=== PATIENT | female | born 1945 | race Caucasian/White ===

== ENCOUNTER → 2018-03-09 | Outpatient (CLI) | payer OTHER ==
[~2018-03-09] MED LIST: ALEVE220 MG PO; DIPHENHIST50 MG PO; HYDROXYZINE HCL25 M2 PO; IBUPROFEN 800800 M1 PO; LISINOPRIL2.5 MG; MECLIZINE HCL25 M1 PO; MILLIPRED DP5 MG PO; MOBIC15 MG PO; NORCO 5-325 TA1 EACH PO; NORVASC5 MG PO; OMEPRAZOLE 20 M20 M1 PO; OXYCODONE HCL 55 MG PO; PREDNISONE 10 M10 MG PO; SIMVASTATIN5 MG; TRAMADOL 50 MG50 MG PO; VALTREX1000 MG PO; ZOFRAN ODT4 MG PO
--- NOTE | 2018-03-11 16:04 | S ---
[address] [address] SURGICAL PATH RPT PROCEDURE Name: SHWETA NUNEZ Room: [facility] Rodriguez#: [id number] Admission: 03/09/18 Date of : 49 Discharge: Report #: [id number] Path Case #: [id number] PATHOLOGY REPORT COLLECTION DATE: 03/09/2018 RECEIVED DATE: 03/09/2018 SUBMITTING PHYS: Dr. Jorge Luis Wallace OTHER PHYS: Dr. Karen Barrow SPECIMEN(S) RECEIVED: A.Right breast stereotactic biopsy for calcification B.Right breast 2:00 6 cm from nipple, 1.09 x 0.56 x 0.92 cm C.Right breast 9:00 4 cm from nipple, 0.98 x 0.40 x 0.93 cm * * * * * * * * * * * * FINAL DIAGNOSIS: A. Calcifications, right breast, stereotactic biopsy: - DUCTAL CARCINOMA IN SITU (DCIS), HIGH GRADE, COMEDO TYPE, SPANNING 4 MM, ASSOCIATED WITH CALCIFICATIONS. (SEE COMMENT) B. Right breast, 2:00, 6 cm from nipple, stereotactic biopsy: - DUCTAL ADENOCARCINOMA, HIGH GRADE, SPANNING 8 MM. (SEE COMMENT) C. Right breast, 9:00, 4 cm from nipple, stereotactic biopsy: - Benign breast with fibroadenoma/fibroadenomatosis, negative for atypia. (see comment) (FÉLIX:bita; 03/10/2018) COMMENT: SPECIMEN B Specimen type: Stereotactic biopsy Tumor site: Right breast, 2:00, 6 cm from nipple Tumor quantitation: Approximately 50% of submitted tissues Histologic type: Ductal adenocarcinoma Histologic grade: III of III Tubules, nuclei and mitoses: 3, 3, 3 LVSI: Not identified Microcalcifications: Not identified Markers: Breast tumor profile pending Block: B1 A properly controlled e-cadherin stain performed on B3 highlights the neoplastic cells supporting the classification. A focus of high nuclear grade DCIS is also identified in B3 spanning less than 1 mm, although it is compromised by cauterization/biopsy artifact. A prominent lymphoplasmacytic infiltrate is noted in association with the infiltrating tumor, as well as DCIS. Breast tumor profile studies are pending on B1 and will be the [place] [address] SURGICAL PATH RPT PROCEDURE Name: RAMANCruzitoSHWETA Gilberto [facility]: [facility] [id number] Admission: 03/09/18 Date of : 49 Discharge: Report #: [id number] Path Case #: [id number] Several cores in specimen C show fibroadenoma/fibroadenomatosis with a longest intact span of 1 cm identified in C3. Mirian Mack ([facility] Breast Navigator) notified at approximately 0955 on 03/11/2018. Specimens A, B, and C reviewed with , who agrees with the diagnoses. PATHOLOGIST: Daniel Leong M.D. REPORT ELECTRONICALLY SIGNED BY: Daniel Leong M.D. DATE/TIME: 03/11/2018 16:04 * * * * * * * * * * * * GROSS PATHOLOGY: A. The specimen is received in formalin, labeled "Shweta Nunez and right breast calcification", are four fibrofatty tissues ranging from 0.8 cm up to 2.5 cm in greatest dimension and measuring 2.5 x 0.7 x 0.4 cm in aggregate. Two fragments are received in one blue cassette--these are transferred into A1 and the remaining into A2-A3. Times surgically removed: 1145 on 03-09-18, time placed in formalin: 1150 on 03-09-18, time of fixation: 12 hours and 10 minutes. B. The specimen is received in formalin, labeled "Shweta Nunez and right breast, 2:00, 6 cm from nipple", are four fibrofatty soft tissues ranging from 1.3 cm up to 1.5 cm in greatest dimension and measuring 1.5 x 0.5 x 0.2 cm in aggregate. The specimen is entirely submitted in B1-B3. Times surgically removed: 1016 on 03/09/18, time placed in formalin: 1020 on 03/09/18, time of fixation: 13 hours and 30 minute. C. The specimen is received in formalin, labeled "Shweta Nunez and right breast, 9:00, 4 cm from nipple", are several fibrofatty soft tissues ranging from 0.4 up to 2.0 cm in greatest dimension and measuring 2.0 x 0.6 x 0.2 cm in aggregate. The specimen is entirely submitted in C1-C3. Times surgically removed: 0947 on 03/09/18, time placed in formalin: 0950 on 03/09/18, time of fixation: 14 hours and 40 minutes. (SWS; 03/09/2018) CLINICAL HISTORY: A. Right breast stereotactic biopsy for calcifications INITIAL CPT CODE(S): A; 16214 B; 50133, 25472(4), 94142 C; 72181 Professional services performed by [facility] at [facility], [facility] [address], [place] [address]. Technical services performed by [facility] at [address] [place] [address]., [address], [place] [address]. [place] [address] SURGICAL PATH RPT PROCEDURE Name: SHWETA NUNEZ Room: [facility] Rodriguez#: [id number] Admission: 03/09/18 Date of : 49 Discharge: Report #: [id number] Path Case #: [id number] [facility] [address] [address] PHONE: [phone] DIRECTOR: Andre Swift M.D. * * * END OF REPORT * * *
--- NOTE | 2018-05-20 11:08 | PATH ---
[place] [address] PATHOLOGY RPT PROCEDURE Name: SHWETA PLUMMER Room: [facility]#: [id number] Admission: 03/09/18 Date of : 49 Discharge: Report #: [id number] Path Case #: [id number] [facility] Accession Number: [id number] . 01 Material submitted: . AMENDMENT FOR [id number] . 02 Diagnosis: CORRELATED CASES: [id number] / [id number] . This amendment is issued to correct the method of biopsy performed for specimens B and C, previously resulted as stereotactic biopsies, but which should instead both be ultrasound-guided biopsies. The remainder of the report is unchanged. . Please refer to [id number] for original diagnosis. . (FÉLIX:jude; 05/19/2018) [facility]/05/20/2018 . 02 Electronically signed: . Daniel Leong MD, Pathologist NPI- [id number] . 02 Pathologist provided ICD-10: C50.911 . 02 CPT . 246043 Performed at: 01 [facility] [address], [place], [place] [id number] MD Axel Davalos MD Phone: [phone] Performed at: [address] [place] [address] [address], [place], [place] [id number] MD Daniel Leong MD Phone: [phone]
== END | disposition home or self-care (01) ==
LOC: M.ULTRA 07:57
DX: C50.911 Malignant neoplasm of unspecified site of right female breast (principal); D24.1 Benign neoplasm of right breast; Z91.040 Latex allergy status; Z91.041 Radiographic dye allergy status; Z88.8 Allergy status to other drugs, medicaments and biological substances; Z79.899 Other long term (current) drug therapy; Z79.891 Long term (current) use of opiate analgesic

== ENCOUNTER → 2018-03-17 | Outpatient (CLI) | payer OTHER ==
--- NOTE | 2018-03-28 18:28 | CON ---
[address] [address] CONSULTATION Name: KAVITHASHWETA Gilberto Room: [facility].#: [id number] Admission: 03/17/18 Attend Phys: Rosales Jason MD Discharge: Date of : 49 Report #: [id number] THIS REPORT FOR: //name// CC: Rosales George MD DATE OF CONSULTATION: 03/17/2018 [facility] REFERRING PHYSICIANS: Dr. Karen Li, Dr. Joan Barrow and Dr. Suleiman George. PRIMARY SITE AND HISTOPATHOLOGY: The patient has a right breast cancer. HISTORY OF PRESENT ILLNESS: The patient is a 72-year-old woman who had a routine mammogram performed on 02/16/2018, which revealed a 1 cm mass in that area, and then on a focused diagnostic mammogram of the right breast there was a 1.1 cm x 0.5 cm.x 1.1 cm irregular mass at the 2 o'clock position, there was a subtle focus of shadowing in the 12 o'clock position and there was also an irregular mass measuring 0.5 cm.x 0.7 cm. x 0.4 cm at the 9 o'clock position. She denied having any palpable masses there. She denied having any nipple discharge. So, she had biopsies of those areas. The biopsy was on 03/09/2018. She had a ductal adenocarcinoma that was high grade spanning 0.8 cm in the 2 o'clock position. She had a ductal carcinoma in situ, high grade, which was probably at the 12 o'clock position, and was comedo type, and then at the 9 o'clock position there was a fibroadenoma. She presents to discuss treatment options. PAST MEDICAL HISTORY AND PAST SURGICAL HISTORY: Includes hypertension, hyperlipidemia, history of colon polyps. MEDICATIONS: Include amlodipine, lisinopril, simvastatin, omeprazole. ALLERGIES: IODINE AND CITRUS. GYNECOLOGY HISTORY: Menopause in her 50s. She is 1, para 1. FAMILY HISTORY: Father had prostate cancer. SOCIAL HISTORY: The patient is retired. She is single. She has a 50-year-old son. Ethanol: she does not drink alcohol containing beverages. Cigarettes: she does smoke cigarettes. REVIEW OF SYSTEMS: [place] [address] CONSULTATION Name: SHWETA PLUMMER Room: [facility]#: [id number] Admission: 03/17/18 Attend Phys: Rosales Jason MD Discharge: Date of : 49 Report #: [id number] GENERAL: She denied having any sweats. SKIN: She denied having color changes. LYMPH NODES: She denied having enlarged or painful glands in the neck or underarms. ENDOCRINE: She denied having any hot or cold intolerance. HEMATOLOGY/IMMUNOLOGY: She denied having any recent bleeding. MUSCULOSKELETAL: She does have some arthritis in the right shoulder. HEAD AND NECK: She denied having any migraine headaches. RESPIRATION: She denied having shortness of breath. CARDIOVASCULAR: She denied having palpitations. GASTROINTESTINAL: She denied having nausea. NEUROLOGIC: She denied having any focal weakness. PHYSICAL EXAMINATION: With my staff, Alma Ricardo, present: VITAL SIGNS: Weight 145 pounds, blood pressure 168/82, pulse 107, respirations 14. GENERAL/PSYCHIATRIC: She was alert, oriented, and in no acute distress. LYMPH NODE: She had no cervical, supraclavicular or axillary lymphadenopathy. EYES: Pupils were equal, round, reactive to light and accommodation. HEAD, EARS, NOSE, THROAT: Mouth had no visible lesions. HEART: Had a regular rate and rhythm without murmur. LUNGS: were clear to auscultation. BREASTS: Right breast had a palpable seroma around the 2 o'clock position measuring 3 cm. x 3 cm. There were no other suspicious palpable masses involving the right breast or the left breast. ABDOMEN: Nontender. Spleen was not palpable. Liver was at the costal margin. EXTREMITIES: Had no clubbing, cyanosis or edema. NEUROLOGIC: Cranial nerves II to XII were intact. Sensation was intact. The patient had 5/5 strength throughout her extremities. ASSESSMENT AND PLAN: The patient so far has findings consistent with an early breast cancer. It is multifocal with another focus of ductal carcinoma in situ. She was told that her treatment options include breast conservation therapy versus mastectomy. This is based on studies such as NSABP B-06 where patients with early breast cancers were randomized between total mastectomy versus lumpectomy alone versus lumpectomy and radiation therapy. At 20-years followup there was no difference in overall survival between the 3 treatment groups. The addition of radiation therapy to lumpectomy reduced the local failure rate from 39% to 14%. The risks, benefits and logistics of radiation therapy were explained to the patient in detail and she wanted to pursue breast conservation therapy if possible. So she gave her witnessed, informed consent to proceed with radiation therapy. She is due to see her medical oncologist, Dr. George, this Thursday. I spoke with her surgeon and indicated that the patient would prefer, if possible, to have breast conservation therapy[place] [address] CONSULTATION Name: SHWETA PLUMMER Room: [facility]#: [id number] Admission: 03/17/18 Attend Phys: Rosales Jason MD Discharge: Date of : 49 Report #: [id number] patient to return for a followup appointment to see me in about 6 weeks. Thank you for allowing me to participate in the care of this patient. <ELECTRONICALLY SIGNED> By: Rosales Jason MD 03/28/18 1828 1237 1803Ddella Jason MD /nt
== END ==
LOC: M.RTH 02:08
DX: C50.911 Malignant neoplasm of unspecified site of right female breast (principal)

== ENCOUNTER → 2018-04-13 | Day surgery (SDC) | payer OTHER ==
[2018-04-13 10:39] LABS: HEMATOCRIT 43.7 % (37.0-47.0); HEMOGLOBIN 14.1 gm/dL (12.0-15.0); MCH 26.5 pg (26.0-34.0); MCHC 32.3 g/dL (28.0-37.0); MCV 81.9 fL (80.0-100.0); MPV 8.1 fl. (7.2-11.1); RBC 5.34 mil/uL (4.20-5.00); RDW-CV 13.7 % (10.5-14.5); WBC 11.7 thou/uL (4.0-11.0)
[2018-04-13 10:57] LABS: CALCIUM 9.6 mg/dL (8.5-10.1); CREATININE 0.7 mg/dL (0.6-1.3); POTASSIUM 3.9 mmol/L (3.5-5.1)
[2018-04-13 11:04] LABS: ALBUMIN 3.9 g/dL (3.4-5.0); TOTAL BILIRUBIN 0.3 mg/dL (<0.1-1.0); TOTAL PROTEIN 8.3 g/dL (6.4-8.2)
--- NOTE | 2018-04-13 17:16 | EKG ---
[place] [address] ELECTROCARDIOGRAM REPORT Name: SHWETA PLUMMER Gilberto Room: [facility]#: [id number] Admission: 04/13/18 Attend Phys: Joan Barrow DO Discharge: Date of : 49 Report #: [id number] THIS REPORT FOR: //name// [facility] Test Date: 2018-04-13 Test Time: 11:46:17 Pat Name: SHWETA PLUMMER Department: Room: Gender: F Vault [facility] 1945 Requested By: Joan Barrow Order Number: [id number] MD: Juan A Echeverria Measurements Intervals Wayne Rate: 83 P: 52 MT: 181 QRS: 28 QRSD: 89 T: 40 QT: 385 QTc: 453 Interpretive Statements Sinus rhythm Minimal ST elevation, anterior leads Baseline wander in lead(s) V3 Compared to ECG 05/27/2007 10:42:36 ST (T wave) deviation now present Electronically Signed On 04-13-2018 17:16:04 CDT by Juan A Echeverria [email or web address] <ELECTRONICALLY SIGNED> By: Juan A Echeverria MD, [facility] 04/13/18 1716 1146 1146 Juan A Echeverria MD, [facility] /EPI
--- NOTE | 2018-04-14 07:59 | OP ---
[address] [address] OPERATIVE REPORT Name: SHWEAT PLUMMER Room: [facility].#: [id number] Admission: 04/13/18 Attend Phys: Joan Barrow DO Discharge: Date of : 49 Report #: [id number] THIS REPORT FOR: //name// CC: Joan Li DATE OF SERVICE: 04/13/2018 PREPROCEDURE DIAGNOSES: Right breast invasive carcinoma and right breast ductal carcinoma in situ. POSTOPERATIVE DIAGNOSIS: Right breast invasive carcinoma and right breast ductal carcinoma in situ. FINDINGS: Two wire localizations in the right breast and a nuclear medicine injection in the right breast. SURGEON: Joan Barrow DO COSURGEON: Giovanni Schwab, PGY3. CENSUS CLERK: Shailesh Cooper, PGY1. PROCEDURE PERFORMED: Right breast wire localized partial mastectomy and a right sentinel lymph node dissection deep. ANESTHESIA: LMA and local. ESTIMATED BLOOD LOSS: 10. DRAINS: None. SPECIMENS: Right partial mastectomy and right deep sentinel lymph node. COMPLICATIONS: None. CONDITION: Stable. DISPOSITION: PACU to home. HISTORY OF PRESENT ILLNESS: The patient is a very omaira 72-year-old female who presented to my office with a change in her mammogram. She had a finding of new calcifications in the right breast. She was sent to [place] for biopsy. There were multiple areas which they biopsied. There was one area at the 9 o'clock position, which was a benign fibroadenoma. Two biopsies completed in the upper inner quadrant, however, were both positive, one for DCIS and one for [facility] [address] [place] [address] OPERATIVE REPORT Name: SHWETA PLUMMER Room: [facility].#: [id number] Admission: 04/13/18 Attend Phys: Joan Barrow DO Discharge: Date of : 49 Report #: [id number] invasive carcinoma. She was seen by myself, oncology and radiation oncology and after complete consultation and discussion in tumor board, it was decided to move forward with an attempt at breast conservation therapy with a right sentinel lymph node dissection. Risks of surgery were discussed include bleeding, infection, pain, scar formation, deformation of the breast, positive margins, need for further surgery, injury to artery, veins, nerves in the axilla, causing chronic pain, numbness or swelling and risks of general anesthesia. The patient understood these risks and elected to proceed. PROCEDURE NOTE: The patient initially presented to preop and was taken to radiology where she underwent right breast needle localization times 2 and a nuclear medicine injection. She returned to preop where she underwent informed consent. She was then taken to the operating room where she was laid supine on the operating room table. SCDs were placed on bilateral lower extremities. Ancef was given in the perioperative period. General LMA anesthesia was induced by anesthesia without difficulty. 5 mL of Lymphazurin blue were injected in the periareolar area. Right breast was then prepped and draped in standard sterile fashion. Timeout was performed to verify patient and procedure. Tips of the two wires were palpated and were marked. An incision was marked out between the 2 wires to encompass essentially the entire inner upper quadrant of the right breast. 10 mL of 0.5% Marcaine were injected in the area of the planned incision. Incision was made with #15 blade. Then, using the wires for guidance, a sizeable lumpectomy was performed essentially creating a partial mastectomy. Once the specimen was removed from the breast, it was marked in the superior and lateral direction and sent to radiology for mammography. Hemostasis was assured in the cavity while we awaited radiology's return phone call. The radiologist reviewed the pictures and was worried that we had potentially lost one of the clips. He stated that it did appear that we had good margins around the wires and previous calcifications were there, but he simply could not see the clip. An additional area of subareolar tissue was dissected and was sent to radiology with no findings of the clip. At this point, he was fairly certain that we had obtained the areas of concern with the possibility that the clip had simply been dislodged during dissection. At this point, the cavity was then packed with moistened Ray-Brandi and returned our attention to the right axilla. Neoprobe was brought into the field and the nipple was investigated. The highest uptake in the area of the nipple was approximately 3000. The axilla was then interrogated. The area of the highest uptake in the axilla was marked. 10 mL of 0.5% Marcaine were injected in this area. Incision was made with a 10 blade. Cautery was used for hemostasis. Then, using a combination of the Neoprobe and blue dye for direction, I gently dissected down into the axilla. Small retractor was placed within the wound. Using a combination of very gentle blunt dissection and cautery dissection, I dissected deep into the axilla. After I had incised the clavipectoral fascia, the lymphatic channel was actually easily identified [place] [address] OPERATIVE REPORT Name: SHWETA PLUMMER [id number] Admission: 04/13/18 Attend Phys: Joan Barrow DO Discharge: Date of : 49 Report #: [id number] Neoprobe uptake in this area was approximately 2500. The area was traced down to a large bright blue node. This was gently grasped using an Allis clamp and was dissected free from the surrounding tissue using a combination of blunt and cautery dissection. Specimen was removed from the axilla and outside of the axilla, the uptake was over 3000. This was then handed off as our sentinel lymph node. Neoprobe was returned into the field and there was no further uptake noted. Hemostasis was assured in the axilla. Both wounds were irrigated. Both wounds were then closed in a layered fashion using deep and superficial stitches of 3-0 Vicryl in inverted interrupted fashion. Skin wounds were closed with running 4-0 Monocryl. A total of 30 mL of 0.5% Marcaine were used to anesthetize the wounds. Wounds were then cleansed and covered with Mastisol, Steri-Strips, 4 x 4's, and a Tegaderm, surgical bra was then also placed. The patient was then allowed to awaken from anesthesia, was extubated and transported to the recovery room with no further difficulties. Counts were correct at the conclusion of the case. Prior to the closure of both wounds, one syringe of Surgiflo was introduced between the 2 wounds. <ELECTRONICALLY SIGNED> By: Joan Barrow DO 04/14/18 0759 1437 1525Crandy Barrow DO /nt
--- NOTE | 2018-07-21 12:05 | PATH ---
[address] [address] PATHOLOGY RPT PROCEDURE Name: SHWETA NUNEZ Room: [facility]..#: [id number] Admission: 04/13/18 Date of : 49 Discharge: Report #: [id number] Path Case #: [id number] [facility] Accession Number: [id number] . 01 Material submitted: . PART A: RIGHT BREAST TISSUE SHORT STITCH SUPERIOR, LONG STITCH LATERAL PART B: RIGHT BREAST TISSUE, LONG STITCH LATERAL, SHORT STITCH SUPERIOR PART C: RIGHT BREAST SENTINAL NODE . 02 Diagnosis: A. Breast tissue, right, lumpectomy with margin evaluation: - INVASIVE POORLY DIFFERENTIATED DUCTAL CARCINOMA (MBR GRADE III). - Maximal tumor size: 1.5 cm - Associated ductal carcinoma in situ, solid type, high-grade, focal - Margins of excision: Negative; invasive carcinoma is located a minimum of 0.8 cm away from the closest (anterior) margin of excision; ductal carcinoma in situ is located a minimum of 0.3 cm away from the closest (superior) margin of excision - Flor[place] ductal epithelial hyperplasia, focal - Fibroadenomatoid change, focal . B. Breast, right, lumpectomy with margin evaluation: - [place] ductal epithelial hyperplasia, focal. - No evidence of atypia or malignancy. . C. [place] lymph node, right, biopsy: - One lymph node with no evidence of carcinoma (0/1). - Cytokeratin immunoperoxidase stain negative. . (Please see comment). AZJ/04/21/2018 . 02 Comment: Review of this patient's breast prognostic panel results shows the following results: Wmq6qfc - negative, Ki-67 - elevated with 53% staining; progesterone - negative, estrogen - 82% of cells positive. . . . The preliminary findings in this case were discussed with Dr. Barrow on 04/21/2018 at approximately 9:45 am. . Please see synoptic report. . . INVASIVE CARCINOMA OF THE BREAST: [place] [address] PATHOLOGY RPT PROCEDURE Name: SHWETA NUNEZ Room: [facility] Jennifer#: [id number] Admission: 04/13/18 Date of : 49 Discharge: Report #: [id number] Path Case #: [id number] Procedure: Excision (less than total mastectomy) Specimen Laterality: Right Tumor Site: Not specified Tumor Size: Greatest dimension of largest invasive focus >1 mm: 15 mm Histologic Type: Invasive carcinoma of no special type (ductal, not otherwise specified) Histologic Grade ([place] Histologic Score): - Glandular (Acinar)/Tubular Differentiation: Score 3 - Nuclear Pleomorphism: Score 3 - Mitotic Rate: Score 3 - Overall Grade: Grade 3 Tumor Focality: Single focus of invasive carcinoma Ductal Carcinoma In Situ (DCIS): Present - Negative for extensive intraductal component (EIC) Size (Extent) of DCIS: Estimated size (extent) of DCIS: at least 12 mm Architectural Patterns: Solid Nuclear Grade: Grade III (high) Necrosis: Present, focal Lobular Carcinoma In Situ (LCIS): No LCIS in specimen Margins: Uninvolved by invasive carcinoma - Distance from closest margin: 8 mm DCIS Margins: Uninvolved by DCIS - Distance from closest margin: 3 mm Regional Lymph Nodes: Uninvolved by tumor cells - Number of Lymph Nodes Examined: 1 - Number of [place] Nodes Examined: 1 Treatment Effect: No known presurgical therapy TNM Descriptors: - pT1c: Tumor >10 mm but < or = 20 mm in greatest dimension - pN0: No regional lymph node metastasis identified or ITCs only# Microcalcifications: Present in DCIS . (SKM:pit; 04/21/2018) . 02 Addendum: . Special studies report received from [facility], [address] [place] [address], [address], [place], [address], on case [id number], labeled with their number [id number], dated 05/10/2018. . Referral Testing Report . Test Performed Prosmillie(Lary) . Specimen Type Tissue - Paraffin Embedded - Right Breast . Results Alternate Control Number: [id number] [place] [address] PATHOLOGY RPT PROCEDURE Name: SHWETA NUNEZ [id number] Admission: 04/13/18 Date of : 49 Discharge: Report #: [id number] Path Case #: [id number] Alternate Total Volume: Not Provided Fasting: No . . Block Number: BLOCK ID [id number] . Tumor Size: <= 2 cm . Lymph Nodes: Node-negative . Patient Prosigna Score: 60 . Risk Group . INTERMEDIATE RISK The Prosigna Score ranges from 0 through 100 and correlates with the probability of distant recurrence (DR) in the tested population. Risk classification is provided to guide the interpretation of the Prosigna Score using cutoffs related to clinical outcome. Risk Group Prosigna Score Low risk 0-40 Intermediate risk 41-60 High risk 61-100 . Distant Recurrence Probability . Comment: In the clinical validation study, patients who were nodenegative, with a Prosigna Score of 60 were in the intermediate risk group. The intermediate risk population averaged a 10% probability of distant recurrence at 10 years. . The Prosigna algorithm was used in retrospective analysis of the ABCSG-8 clinical trial which included more than 1400 patients with varying risks of distant recurrence. Please refer to Prosigna package insert for further information, including the graphic content of the retrospectively fitted model relating Prosigna Score to 10-year distant recurrence for node-negative patients in the ABCSG-8 study. . Clinical Validation Study: Prognosis for node-negative breast cancer patients was determined based on the probability of distant recurrence (DR) for this [place] [address] PATHOLOGY RPT PROCEDURE Name: SHWETA NUNEZ Room: [facility]#: [id number] Admission: 04/13/18 Date of : 49 Discharge: Report #: [id number] Path Case #: [id number] the validation [facility]. This study analyzed 1047 node-negative samples using a prospectively defined analysis plan. The data shown in the table below are for post-menopausal women with hormone receptor-positive, node-negative, Stage I and II breast cancer that received 5 years of endocrine therapy. . Probability of DR Prespecified Patient Risk Group at 10 years for node-negative Patients ABCSG-8 Low Risk Intermediate Risk High Risk (95% CI) (95% CI) (95% CI) ------ ------ ------ 3% 10% 16% (2%-6%) (7%-14%) (11%-22%) ------ ------ ------ . Test Information Background: The Prosigna(TM) Breast Cancer Prognostic Gene Signature Assay is an FDA approved assay which provides a risk category and numerical score, to assess a patient's risk of distant recurrence of disease at 10 years in postmenopausal women with node-negative (Stage I or II) or node-positive (Stage II), hormone receptor-positive (HR+) breast cancer. The Prosigna(TM) assay measures gene expression levels of RNA extracted from formalin-fixed paraffin-embedded (FFPE) breast tumor tissue previously diagnosed as invasive breast carcinoma. Performance characteristics of the Prosigna(TM) assay have been established for postmenopausal women with hormone receptor positive early stage breast cancer treated with 5 years of adjuvant endocrine therapy. Performance with other treatment regimens or in other patient populations has not been established. The interpretation of Prosigna(TM) assay results (Prosigna(TM) Score, risk category) should be evaluated within the context of other clinicopathological factors, the patient's medical history and any other laboratory test results. Prosigna(TM) is not intended for diagnosis, to predict or detect response to therapy, or to help select the optimal therapy for patients. . Methodology: The Prosigna(TM) assay is performed on RNA isolated from FFPE breast tumor tissue. It simultaneously measures the expression levels of 50 genes used in PAM50 classification algorithm, 8 housekeeping genes used for signal normalization, 6 positive controls, and 8 negative controls in a single hybridization reaction, using nucleic acid probes designed specifically to those genes. . References: 1. Package Insert: Prosigna Breast Cancer Prognostic Gene Signature Assay; [place] [address] PATHOLOGY RPT PROCEDURE Name: SHWETA NUNEZ Room: [facility]#: [id number] Admission: 04/13/18 Date of : 49 Discharge: Report #: [id number] Path Case #: [id number] v1, created 2013-07; REF [id number]. 2. Lia Chairez, et al, Predicting risk for late metastasis: The PAM50 risk of recurrence (ROR) score after 5 years of endocrine therapy in postmenopausal women with HR+ early breast cancer: A study on 1,478 patients for the ABCSG-8 trial. Consuelo Oncol 2013; 24 (Supplement 3): [id number]. 3. Nicholas Cordova et al, Supervised Risk Predictor of Breast Cancer Based on Intrinsic Subtypes. J. Clin Onc v27 No.8 (2009):6412-5936. . Microdissection Performed at [facility] [address] [facility] [address]. . . Director Review: Diane Moreland MD, PhD, Director, Molecular [facility] [place], [place] Lab Support Service Tech: Nikki Watts M.D. . Disclaimer This Test was performed by [facility] at [address] [place], [address]. [facility] [employer] is a business unit of [employer] a wholly-owned subsidiary of [employer]. . A complete copy of the report is on file. . Professional services performed by [facility]. at [address], [place] [address]. Technical services performed by [employer]. at [address], [place] [address]. . (AMJ 05/11/2018) AZJ/05/11/2018 Addendum Electronically Signed by Claire Javier MD, Pathologist . 02 Electronically signed: . Rom Vivas MD, Pathologist NPI- [id number] . 01 Gross description: . A. Received in formalin labeled "Shweta Nunez, right breast tissue short superior, long lateral" and consists of a 98 g oriented lumpectomy specimen with needle localization times 2. It measures 8.1 cm S-I, 7.7 cm L-M, and 4.4 cm A-P. There are multiple cracks and crevices at the anterior and inferior surfaces. There may be runoff ink anteriorly and inferiorly. The surgical margins are inked as follows: superior blue, inferior green, lateral yellow, medial red, anterior orange, posterior black. The specimen is serially sectioned from inferior to superior into 14 macro levels (levels 1 and 14 averaging 1.0 cm [place] [address] PATHOLOGY RPT PROCEDURE Name: SHWETA NUNEZ Room: [facility] M.R.#: [id number] Admission: 04/13/18 Date of : 49 Discharge: Report #: [id number] Path Case #: [id number] averaging 0.5 cm). . There is a nodular pink limon mass identified in levels 11 and 12 with adjacent biopsy changes and fat necrosis. The area measures 1.5 x 1.1 x 1.0 cm and grossly clears all margins by 1.0 cm or greater. The metallic marker is not grossly identified. There is prominent dense white stroma throughout the entire specimen. The stroma accounts for roughly 35% of parenchyma. There are no additional discrete masses or lesions identified. The cold ischemic time is 30 minutes and the formalin fixation time is approximate 39 hours. 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 A1 level I, inferior, perpendicular A2 level II (medial and posterior) A3 level III (medial and posterior) A4-A5 level IV (4-lateral/anterior, 5-anterior) A6 level V (lateral and anterior) A7-A8 level (C7-lateral/posterior, 8-no margin) A9-A10 level VII (9-anterior, 30-bvi-svvvwxz/posterior) A11-A13 level VIII (11-anterior, 12-posterior, 13-anterior/lateral) A14-A15 level IX (14-anterior, 15-lateral/posterior) A16-A18 level X (16-anterior, 17-posterior/lateral, 18-lateral/anterior) A19-A25 level XI, entire level A26-A32 level XII, entire level A33-A34 level XIII (33-lateral/anterior, 34-anterior/superior) A35 level XIV, superior, perpendicular . B. Received in formalin labeled "Shweta Nunez, right breast tissue long lateral, short superior" and consists of a 14 g oriented lumpectomy specimen measuring 5.0 cm L-M, 4.0 cm S-I, and 1.8 cm A-P. The surgical margins are inked as follows: superior blue, inferior green, lateral yellow, medial red, anterior orange, and posterior black. The specimen is serially sectioned from lateral to medial into 12 levels. There is approximately 30% stroma and 70% adipose tissue identified. . B1 level I, lateral, perpendicular B2 level II B3 level III B4 level IV B5 level V B6-B7 level B8 level VII B9 level VIII B10 level IX B11 level X B12 level XI B13 level XII, medial, perpendicular . C. Received in formalin labeled "Shweta Richardso, right breast sentinel [facility] [address] [place] [address] PATHOLOGY RPT PROCEDURE Name: SHWETA NUNEZ Room: [facility].#: [id number] Admission: 04/13/18 Date of : 49 Discharge: Report #: [id number] Path Case #: [id number] node" and consists of a 2.0 x 1.5 x 0.9 cm lymph node candidate which is serially sectioned and entirely submitted as C1. . (PHANI; 04/14/2018) JBR/JBR . 02 Pathologist provided ICD-10: C50.911, D05.11, N62 . 02 CPT . 422219, 690033, 890634, B42598 Performed at: 01 [facility] [address] [id number] MD Axel Davalos MD Phone: [phone] Performed at: 02 [facility] [address] [id number] MD Andre Swift MD Phone: [phone]
== END | disposition home or self-care (01) ==
LOC: M.SUR 10:18
PROVIDERS: Surgery
DX: C50.211 Malignant neoplasm of upper-inner quadrant of right female breast (principal); D24.1 Benign neoplasm of right breast; Z91.041 Radiographic dye allergy status; Z88.8 Allergy status to other drugs, medicaments and biological substances; Z79.899 Other long term (current) drug therapy; Z98.890 Other specified postprocedural states

== ENCOUNTER → 2018-04-15 | Outpatient (CLI) | payer OTHER ==
[2018-04-15 10:13] LABS: ABSOLUTE BASOPHILS 0.1 thou/uL (0.0-0.2); ABSOLUTE EOSINOPHILS 0.2 thou/uL (0.0-0.7); ABSOLUTE LYMPHOCYTES 2.6 thou/uL (0.8-5.3); ABSOLUTE MONOCYTES 0.8 thou/uL (0.0-1.2); ABSOLUTE NEUTROPHILS 8.8 thou/uL (1.6-8.1); BASOPHILS 0.4 %; EOSINOPHILS 1.6 %; HEMOGLOBIN 13.3 gm/dL (12.0-15.0); LYMPHOCYTES 20.7 %; MCH 27.1 pg (26.0-34.0); MCHC 33.1 g/dL (28.0-37.0); MCV 81.8 fL (80.0-100.0); MONOCYTES 6.2 %; MPV 8.3 fl. (7.2-11.1); NUCLEATED RBCS 0 /100WBC; PLATELET COUNT* 365 thou/uL (150-400); POLYS 71.1 %; RBC 4.89 mil/uL (4.20-5.00); RDW-CV 13.7 % (10.5-14.5); WBC 12.4 thou/uL (4.0-11.0)
[2018-04-15 10:26] LABS: ALBUMIN 3.4 g/dL (3.4-5.0); CALCIUM 8.9 mg/dL (8.5-10.1); CREATININE 0.8 mg/dL (0.6-1.3); TOTAL BILIRUBIN 0.2 mg/dL (<0.1-1.0); TOTAL PROTEIN 7.2 g/dL (6.4-8.2)
== END ==
LOC: M.LAB 09:31
PROVIDERS: Radiology Radiation Oncology
DX: C50.911 Malignant neoplasm of unspecified site of right female breast (principal)

== ENCOUNTER → 2018-04-28 | Outpatient (CLI) | payer OTHER ==
--- NOTE | 2018-05-09 12:00 | ONC ---
[address] [address] RADIATION ONCOLOGY NOTE Name: KAVITHASHWETA Gilberto Room: [facility].R.#: [id number] Admission: 04/28/18 Attend Phys: Rosales Jason MD Discharge: Date of : 49 Report #: [id number] THIS REPORT FOR: //name// CC: Rosales George MD DATE OF SERVICE: 04/28/2018 [facility] RADIATION ONCOLOGY FOLLOWUP NOTE REFERRING PHYSICIANS: Karen Li MD; Dr. Joan Barrow and Suleiman George MD PRIMARY SITE AND HISTOPATHOLOGY: The patient has a grade III invasive poorly differentiated ductal carcinoma of the right breast after lumpectomy and lymph node sampling. The lymph node was not involved with cancer. The breast cancer maximum size was 1.5 cm. The margins were not involved with cancer. Based on the 8th edition of the AJCC staging, this would be a stage IIA breast cancer. The breast cancer was HER2/leonora negative, Ki-67 was 53%, progesterone receptors were negative, and the tumor was 82% estrogen receptor positive. INTERVAL NOTE: The patient indicated she had her lumpectomy and lymph node sampling on 04/13/2018. She felt that she has recuperated well and that her surgical scars have healed up well. She indicated that she is scheduled to see her medical oncologist, Dr. George, on 05/06/2018. Based on Dr. George's last note, it appears that she may be running an Oncotype DX to help determine her systemic therapy. It appears like she was going to get an antiestrogen medication, but she may get additional therapies if she has a higher Oncotype DX value. I will await Dr. George's input on 05/06 to see what the final plans are for systemic therapy. MEDICATIONS: Include amlodipine, lisinopril, simvastatin, omeprazole. SOCIAL HISTORY: The patient is retired. Cigarettes: She does not smoke cigarettes. REVIEW OF SYSTEMS: RESPIRATORY: Breathing was baseline. She was not short of breath during her appointment. MUSCULOSKELETAL: She has good range of motion in her upper extremities. PHYSICAL EXAMINATION: The patient was seen with my nurse, Selena Brady present: VITAL SIGNS: The patient weighed 141.8 pounds on 04/28/2018. She was [address] [place] [address] RADIATION ONCOLOGY NOTE Name: SHWETA PLUMMER Room: [facility]#: [id number] Admission: 04/28/18 Attend Phys: Rosales Jason MD Discharge: Date of : 49 Report #: [id number] pounds on 03/17/2018. On 04/28/2018, pulse was 75, blood pressure 153/66, respirations 20 and oxygen saturation 98%. LYMPH NODES: She had no palpable cervical, supraclavicular or axillary lymphadenopathy. She has about a 2 cm x 2 cm seroma in the right axillary area. Right breast has a well-healed surgical scar. There were no suspicious palpable masses involving the right breast. There were no suspicious palpable masses involving the left breast. HEART: Had a regular rate and rhythm without murmur. LUNGS: were clear to auscultation. ABDOMEN: Not tender. Spleen was not palpable. Liver was at the costal margin. ASSESSMENT AND PLAN: 1. History of right breast cancer- The patient underwent lumpectomy and lymph node sampling, on 04/13/2018. She appears to be recuperating well. The patient was told that her treatment options are to possibly proceed with antiestrogen therapy alone and based on the CALGB 9343 study, which randomized patients who are 70 years of age or older between lumpectomy alone versus lumpectomy and tamoxifen, the recurrence rate with an antiestrogen alone (such as tamoxifen) at 10 years was 10% versus 2% if they also received radiation therapy. She appears to want to go ahead with radiation therapy to help minimize her chance of a local recurrence. She appears to be leaning towards having radiation therapy. She does have an appointment with her medical oncologist, Dr. George on 05/06/2018. It appears Dr. George ordered an Oncotype DX. So there may be a chance that the patient may even get chemotherapy if Dr. George feels there is a higher risk of systemic recurrence for this type of cancer. In that situation, the radiation therapy would probably not start until chemotherapy is complete. The patient was given a copy of her complete consent form she signed so that she can ask me any questions. We went over it and answered her questions. She signed that on 03/17/2018 and she was asked to make an appointment to see me about 1-2 weeks after she sees Dr. George. 2. Hypertension- The patient takes amlodipine and lisinopril for hypertension and that is managed by her referring physicians. 3. Hyperlipidemia- The patient takes simvastatin for hyperlipidemia and that is managed by her referring physicians. Thank you for allowing me to participate in the care of this patient. <ELECTRONICALLY SIGNED> By: Rosales Jason MD 05/09/18 1200 1123 MD alcon Barron
== END ==
LOC: M.RTH 03:27
DX: I10 Essential (primary) hypertension (principal); E78.5 Hyperlipidemia, unspecified; Z85.3 Personal history of malignant neoplasm of breast

== ENCOUNTER 2018-09-20 11:02 | Emergency (ER) | payer OTHER ==
[~2018-09-20] VITALS: Ht 154.9 cm; Wt 64.4 kg
[~2018-09-20 11:02] MED LIST changes: -MECLIZINE HCL25 M1 PO
[2018-09-20 11:54] LABS: ABSOLUTE EOSINOPHILS 0.4 thou/uL (0.0-0.7); ABSOLUTE LYMPHOCYTES 0.7 thou/uL (0.8-5.3); ABSOLUTE MONOCYTES 0.3 thou/uL (0.0-1.2); BASOPHILS 0.4 %; EOSINOPHILS 6.6 %; HEMATOCRIT 38.5 % (37.0-47.0); HEMOGLOBIN 12.7 gm/dL (12.0-15.0); LYMPHOCYTES 11.3 %; MCH 26.8 pg (26.0-34.0); MCHC 32.9 g/dL (28.0-37.0); MCV 81.5 fL (80.0-100.0); MONOCYTES 4.2 %; MPV 7.8 fl. (7.2-11.1); NUCLEATED RBCS 0 /100WBC; PLATELET COUNT* 201 thou/uL (150-400); POLYS 77.5 %; RBC 4.72 mil/uL (4.20-5.00); RDW-CV 15.1 % (10.5-14.5); WBC 6.5 thou/uL (4.0-11.0)
[2018-09-20 12:04] LABS: ANION GAP 8 mmol/L (7-16); BUN 16 mg/dL (7-18); CALCIUM 8.7 mg/dL (8.5-10.1); CHLORIDE 105 mmol/L (98-107); CO2 26 mmol/L (21-32); CREATININE 0.7 mg/dL (0.6-1.3); GLUCOSE 130 mg/dL (70-99); POTASSIUM 3.3 mmol/L (3.5-5.1); SODIUM 139 mmol/L (136-145)
[2018-09-20 12:11] LABS: ALBUMIN 3.6 g/dL (3.4-5.0); ALKALINE PHOSPHATASE 112 U/L (46-116); SGOT 19 U/L (15-37); SGPT 33 U/L (30-65); TOTAL BILIRUBIN 0.3 mg/dL (<0.1-1.0); TOTAL PROTEIN 7.2 g/dL (6.4-8.2); TROPONIN-I LEVEL <0.06 ng/mL (<0.06)
[2018-09-20 12:35] LABS: APTT 24.6 Seconds (25.0-31.3); INR 1.2; PROTIME 11.9 Seconds (9.20-11.50)
[2018-09-20 12:36] LABS: URINE BILIRUBIN NEGATIVE (Negative); URINE BLOOD NEGATIVE (Negative); URINE CLARITY CLEAR; URINE COLOR YELLOW; URINE GLUCOSE-RANDOM NEGATIVE (Negative); URINE KETONES NEGATIVE (Negative); URINE LEUKOCYTES-REFLEX NEGATIVE (Negative); URINE NITRITE-REFLEX NEGATIVE (Negative); URINE PROTEIN NEGATIVE (Negative); URINE UROBILINOGEN 0.2 E.U./dl (0.2-1.0)
[2018-09-20] MEDS ORDERED: MECLIZINE HCL25 M1 PO (13:00)
[2018-09-20 13:33] VITALS: BP 158/72
--- NOTE | 2018-09-20 17:54 | EKG ---
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 : 1945 Requested By: Westley Mejia Order Number: [id number] MD: Aldo Martinez Measurements Intervals [place] Rate: 89 P: -6 ID: [id number] QRS: -12 QRSD: 78 T: 29 QT: 385 QTc: 469 Interpretive Statements Sinus rhythm Low voltage, precordial leads LVH by voltage Compared to ECG 04/13/2018 11:46:17 Low QRS voltage now present Left ventricular hypertrophy now present Electronically Signed On 09-20-2018 17:54:25 CDT by Aldo Martinez [email or web address] <ELECTRONICALLY SIGNED> By: Aldo Martinez MD, FACC 09/20/18 1754 1117 1117 Aldo Martinez MD, [facility] /EPI
== END 2018-09-20 13:34 | disposition home or self-care (01) ==
LOC: M.ERS 11:02
PROVIDERS: Emergency Medicine Emergency Medical Services
DX: R42 Dizziness and giddiness (principal); Z91.041 Radiographic dye allergy status; Z91.040 Latex allergy status; Z88.5 Allergy status to narcotic agent; Z88.8 Allergy status to other drugs, medicaments and biological substances; Z96.612 Presence of left artificial shoulder joint; Z85.3 Personal history of malignant neoplasm of breast

== ENCOUNTER → 2019-02-14 | Outpatient (CLI) | payer OTHER ==
[~2019-02-14] MED LIST changes: +MECLIZINE HCL25 M1 PO
== END ==
LOC: M.ULTRA 11:19
DX: E04.2 Nontoxic multinodular goiter (principal); I10 Essential (primary) hypertension; E78.5 Hyperlipidemia, unspecified; C50.919 Malignant neoplasm of unspecified site of unspecified female breast; K21.9 Gastro-esophageal reflux disease without esophagitis; M85.859 Other specified disorders of bone density and structure, unspecified thigh; Z91.040 Latex allergy status; Z91.041 Radiographic dye allergy status; Z68.29 Body mass index [BMI] 29.0-29.9, adult; Z82.49 Family history of ischemic heart disease and other diseases of the circulatory system; Z83.3 Family history of diabetes mellitus; Z82.5 Family history of asthma and other chronic lower respiratory diseases; Z82.1 Family history of blindness and visual loss; Z80.42 Family history of malignant neoplasm of prostate

== ENCOUNTER → 2019-04-06 | Outpatient (CLI) | payer OTHER ==
--- NOTE | 2019-04-08 12:08 | PATH ---
[address] [address] PATHOLOGY RPT PROCEDURE Name: SHWETA PLUMMER Room: [facility].#: [id number] Admission: 04/06/19 Date of : 49 Discharge: Report #: [id number] Path Case #: [id number] Note [facility] Accession Number: [id number] TESTS RESULT FLAG UNITS REF RANGE LAB Clinician Provided Cytology Information No. of containers..01 Other (Miscellaneous) Source: RIGHT THYROID DIAGNOSIS: 02 RIGHT THYROID NEGATIVE FOR MALIGNANT CELLS. BETHESDA CATEGORY II. SPECIMEN CONSISTS OF BENIGN FOLLICULAR CELLS, HEMOSIDERIN-LADEN MACROPHAGES, COLLOID, AND BLOOD. 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 COLLOID IS PRESENT. ABUNDANT RED BLOOD CELLS ARE PRESENT. THIS INTERPRETATION INCLUDES EVALUATION OF A CELL BLOCK. Pathologist ICD10: 02 E04.1 Signed out by: 02 Rom Vivas MD, Pathologist NPI- [id number] Performed by: 01 Karen Resendiz, Fur Blower Operator ([facility]) Gross description: 01 25ML, DARK RED, /LCS FLAG LEGEND: L-Low Normal,H-High Normal,LL-Alert Low,HH-Alert High <-Panic Low,>-Panic High,A-Abnormal,AA-Critical Abnormal Performed at: [address] [place] [address] Axel Davalos MD, [address] [place] [address] [address] [place] [address] Daniel Leong MD, Specimen Comment: A courtesy copy of this report has been sent to Specimen Comment: [phone], . Specimen Comment: Report sent to / DR VARGHESE Performed at: [address], [place], [place] [id number] MD Axel Davalos MD Phone: [phone]
== END | disposition home or self-care (01) ==
LOC: M.ULTRA 07:58
DX: E04.1 Nontoxic single thyroid nodule (principal); Z98.890 Other specified postprocedural states; Z91.041 Radiographic dye allergy status; Z91.040 Latex allergy status; Z79.899 Other long term (current) drug therapy; Z85.3 Personal history of malignant neoplasm of breast; Z96.652 Presence of left artificial knee joint